=== PATIENT | male | born 1940 | race Caucasian/White ===

== ENCOUNTER → 2016-11-12 | Outpatient (CLI) | payer OTHER | LOC: BHFA 11:15 | PROVIDERS: ATTEND Internal Medicine Cardiovascular Disease | DX: I48.91 Unspecified atrial fibrillation (principal); I48.92 Unspecified atrial flutter ==

== ENCOUNTER 2018-04-09 20:58 | Emergency (ER) | payer OTHER ==
[2018-04-09] MEDS ORDERED: NS 1,000 ML IV ONE (21:14)
[2018-04-09] MEDS ORDERED: DILTIAZEM 25 MG/5 ML VIAL IVP ONE (21:14)
--- NOTE | 2018-04-09 21:19 | EDPHY ---
H & P Stated Complaint: WENT INTO A.FIB,A.FLUTTER TODAY/CHX OF A.FIB,A.FLUTTER Source: Patient, Family, Old records Exam Limitations: No limitations - Personal History Current Tetanus Diphtheria and Acellular Pertussis (TDAP): Yes Tetanus Vaccine Date: 2002 - Medical/Surgical History Hx Asthma: No Hx Chronic Respiratory Disease: No Hx Diabetes: Yes Hx Cardiac Disease: Yes Hx Renal Disease: No Hx Cirrhosis: No Hx Alcoholism: No Hx HIV/AIDS: No Hx Splenectomy or Spleen Trauma: No Other PMH: AFIB with 3 ablations, A FLUTTER ON WARFARIN, DM, LIAM - Family History Significant Family History: No pertinent family hx - Social History Smoking Status: Former smoker Alcohol Use: Sober Time Seen by Provider: 04/09/18 21:10 HPI/ROS: CHIEF COMPLAINT: Palpitations HISTORY OF PRESENT ILLNESS: Patient is a 78-year-old man with a long history of atrial fibrillation/flutter on propafenone and metoprolol and warfarin. He states that this morning around 10:00 a.m. He began to have palpitations. He can typically tell exactly when his atrial fibrillation is present or not. He has not had any chest pain. No shortness of breath. He has been eating and drinking normally. He does not feel lightheaded or dizzy. Severity: Moderate Modifying factors: None REVIEW OF SYSTEMS: Constitutional: denies: chills, fever, recent illness, recent injury EENTM: denies: blurred vision, double vision, nose congestion Respiratory: denies: cough, shortness of breath Cardiac: See HPI denies: chest pain, irregular heart rate, lightheadedness, Gastrointestinal/Abdominal: denies: abdominal pain, diarrhea, nausea, vomiting, blood streaked stools Genitourinary: denies: dysuria, frequency, hematuria, pain Musculoskeletal: denies: joint pain, muscle pain Skin: denies: lesions, rash, jaundice, bruising Neurological: denies: headache, numbness, paresthesia, tingling, dizziness, weakness Hematologic/Lymphatic: denies: blood clots, easy bleeding, easy bruising Immunologic/allergic: denies: HIV/AIDS, transplant 10 systems reviewed and negative except as noted EXAM: GENERAL: Well-appearing, well-nourished and in no acute distress. HEAD: Atraumatic, normocephalic. EYES: Pupils equal round and reactive to light, extraocular movements intact, sclera anicteric, conjunctiva are normal. ENT: TMs normal, nares patent, oropharynx clear without exudates. Moist mucous membranes. NECK: Normal range of motion, supple without lymphadenopathy or JVD. LUNGS: Breath sounds clear to auscultation bilaterally and equal. No wheezes rales or rhonchi. HEART: Irregular and rhythm without murmurs, rubs or gallops. ABDOMEN: Soft, nontender, normoactive bowel sounds. No guarding, no rebound. No masses appreciated. BACK: No CVA tenderness, no spinal tenderness, step-offs or deformities EXTREMITIES: Normal range of motion, no pitting or edema. No clubbing or cyanosis. NEUROLOGICAL: Cranial nerves II through XII grossly intact. Normal speech, normal gait. 5/5 strength, normal movement in all extremities, normal sensation , normal reflexes PSYCH: Normal mood, normal affect. SKIN: Warm, dry, normal turgor, no visible rashes or lesions. (Pelon Aiken) Constitutional: Initial Vital Signs Temperature (C) 36.5 C 04/09/18 21:03 Heart Rate 106 H 04/09/18 21:03 Respiratory Rate 16 04/09/18 21:03 Blood Pressure 179/135 H 04/09/18 21:03 O2 Sat (%) 96 04/09/18 21:03 O2 Delivery Mode Room Air Allergies/Adverse Reactions: No Known Allergies Allergy (Verified 04/09/18 21:06) Home Medications: Medication Instructions Recorded Md Reconciled 02/24/12 02/24/12 Metoprolol Succinate 25 mg PO DAILY 02/24/12 Pharmacist Completed 02-23-12 02/24/12 Propafenone HCl [Rythmol] 150 mg PO BID 02/24/12 Quinapril HCl [Accupril 10 MG] 20 mg PO DAILY 02/24/12 Warfarin Sodium [Coumadin 2.5MG 5 mg PO DAILY 02/24/12 (RX)] metFORMIN HCL [Glucophage 500 mg 500 mg PO BID 02/24/12 (RX)] Glimepiride 2 mg PO DAILY 06/05/16 Nexium 40 mg PO DAILY 06/05/16 Onetouch Suresoft Lancing Dev 1 BID 06/05/16 Medical Decision Making - Diagnostics EKG Interpretation: An EKG obtained and was read and documented in trace view. Please see trace view for full reading and report. Atrial flutter with 2 : 1 block, no acute ischemic changes (Pelon Aiken) ED Course/Re-evaluation: Patient appears to be in flutter on the monitor with a variable block. On the EKG is a pretty consistent to 1 block. I will give him a dose of diltiazem to slow him down. His blood pressure is elevated. If his INR is adequate and he has only had symptoms for less than 48 hr I believe we will attempt to cardiovert him as he requests. The patient's heart rate is improved to 80 but he has is still in flutter. Following the auto atrial fibrillation protocol is a good candidate for cardioversion in the department. We discussed options. He would prefer cardioversion to going home still in flutter. We will try procainamide 1st. 11:00 p.m. The patient is procainamide and has been running for about 15 min. He has not yet converted. I will transfer his care to Dr. Guzman for further treatment and disposition. (Pelon Aiken) Differential Diagnosis: Partial list of the Differential diagnosis considered include but were not limited to; atrial fibrillation, atrial flutter, SVT and although unlikely based on the history and physical exam, I also considered acute coronary disease , PE, infection, electrolyte abnormality. I discussed these differential diagnoses and the plan with the patient as well as the usual and expected course. The patient understands that the diagnosis is provisional and that in medicine we are not always correct and that further workup is often warranted. Usual and customary warnings were given. All of the patient's questions were answered. The patient was instructed to return to the emergency department should the symptoms at all worsen or return, otherwise to followup with the physician as we discussed. (Pelon Aiken) Other Provider: 23:[address] Aiken pending cardioversion from procainamide. Plan will be at the patient cardioverted its and is feeling well he will be discharged home with outpatient follow-up his animal attendants and trainers. 23:55 patient has converted to a sinus rhythm. He is ambulating unassisted. Maintaining an appropriate blood pressure. Mildly bradycardic which is baseline. Will discharge with follow-up with animal attendants and trainers per Dr. Aiken plan. (Juanjose Guzman) - Data Points Laboratory Results: Laboratory Results 04/09/18 21:15 04/09/18 21:15 Medications Given: Discontinued Medications Diltiazem HCl (Cardizem 25 Mg/5 Ml Vial) 10 mg IVP EDNOW ONE Stop: 04/09/18 21:15 Last Admin: 04/09/18 21:20 Dose: 10 mg Sodium Chloride (Ns) 1,000 mls @ 0 mls/hr IV EDNOW ONE; Wide Open PRN Reason: Protocol Stop: 04/09/18 21:15 Last Admin: 04/09/18 21:20 Dose: 1,000 mls Procainamide HCl 1,000 mg/ (Sodium Chloride) 60 mls @ 60 mls/hr IV ONCE ONE Stop: 04/09/18 23:01 Last Admin: 04/09/18 22:37 Dose: 60 mls Point of Care Test Results: Chemistry 04/09/18 21:18 POC Troponin I 0.01 ng/mL ng/mL (0.00-0.08) Departure - Departure Disposition: Home, Routine, Self-Care Clinical Impression: Atrial flutter Qualifiers: Atrial flutter type: typical Qualified Code(s): I48.3 - Typical atrial flutter Condition: Fair Instructions: Atrial Flutter (ED) Additional Instructions: Follow up with animal attendants and trainers in 3-4 days for further evaluation. Return to the emergency department for lightheadedness, fainting, chest pain, shortness of breath, or any other concerns. Referrals: Lauren Mota MD [Primary Care Provider] - As per Instructions Heather Iniguez MD [Medical Doctor] - As per Instructions
--- NOTE | 2018-04-09 21:20 | CPEKG ---
Test Reason : OPEN Blood Pressure : / mmHG Vent. Rate : 139 BPM Atrial Rate : 139 BPM P-R Int : 130 ms QRS Dur : 084 ms QT Int : 309 ms P-R-T Axes : 111 013 -70 degrees QTc Int : 470 ms Atrial flutter with 2:1 AV block Repolarization abnormality, prob rate related Confirmed by Pelon Aiken ([id number]) on 04/09/2018 9:20:27 PM Referred By: Confirmed By:Pelon Aiken
[2018-04-09 21:26] LABS: PLATELET COUNT 259 10^3/uL (150-400)
[2018-04-09 21:37] LABS: INR 2.42 (0.83-1.16); PROTIME(PATIENT) 26.3 SEC (12.0-15.0)
[2018-04-09] MEDS ORDERED: PROCAINAMIDE HCL IV ONE (22:02)
[2018-04-09] MEDS ORDERED: NS IV ONE (22:02)
[2018-04-10 00:02] VITALS: BP 134/75
--- NOTE | 2018-04-10 06:06 | CPEKG ---
Test Reason : OPEN Blood Pressure : / mmHG Vent. Rate : 043 BPM Atrial Rate : 043 BPM P-R Int : 193 ms QRS Dur : 098 ms QT Int : 513 ms P-R-T Axes : 067 -01 006 degrees QTc Int : 434 ms Sinus bradycardia Confirmed by Juanjose Guzman ([id number]) on 04/10/2018 6:05:54 AM Referred By: Confirmed By:Juanjose Guzman
== END 2018-04-10 00:02 | disposition home or self-care (01) ==
DX: I48.3 Typical atrial flutter (principal); E86.9 Volume depletion, unspecified
CPT/HCPCS: 93005; 96361; 96374; 99284; J2690; 84484-PO

== ENCOUNTER → 2018-04-29 | Outpatient (CLI) | payer OTHER | LOC: BHFA 09:30 | PROVIDERS: ATTEND Internal Medicine Cardiovascular Disease | DX: I48.91 Unspecified atrial fibrillation (principal) | CPT/HCPCS: 78452; 93017; A9500 ==